=== PATIENT | female | born 1970 | race Caucasian/White ===

== ENCOUNTER 2016-05-12 09:40 | Outpatient (CLI) | payer BC ==
[2016-05-12 10:04] LABS: #Basophils 0.2 thou/uL (0.0-0.2); #Eosinphils 0.4 thou/uL (0.0-0.7); #Monocytes 0.6 thou/uL (0.11-0.59); #Neutrophils 4.5 thou/uL (1.40-6.50); %Eosinophils 4.8 % (0.0-10.0); %Monocytes 8.3 % (0.0-10.0); Hematocrit 40.2 % (36.0-47.0); Mean Platelet Volume 7.9 fL (7.4-10.4); Red Blood Cell (RBC) Count 4.57 mill/uL (4.20-5.40); White Blood Cell (WBC) Count 7.7 thou/uL (4.8-10.8)
[2016-05-12 10:12] LABS: ALT (SGPT) 9 U/L (0-55); AST (SGOT) 15 U/L (5-34); Alkaline Phosphatase 58 U/L (40-150); Anion Gap 11 mmol/L (10-20); BUN (Urea Nitrogen) 14 mg/dL (7.0-18.7); Bilirubin, Total 0.3 mg/dL (0.2-1.2); Calc. Creatinine Clearance 0 mL/min (70-130); Calcium 8.9 mg/dL (7.8-10.44); Carbon Dioxide 26 mmol/L (22-29); Chloride 108 mmol/L (98-107); Estimated GFR-MDRD 87; Protein, Total 7.1 g/dL (6.0-8.3)
== END 2016-05-12 09:41 | disposition home or self-care (01) ==
LOC: BURLAB 09:40
PROVIDERS: ATTEND Family Medicine
DX: E16.2 Hypoglycemia, unspecified (principal)
CPT/HCPCS: 36415; 80053; 83036; 83525; 84443; 84681; 85025

== ENCOUNTER 2016-06-09 07:13 | Outpatient (CLI) | payer BC ==
[2016-06-09 08:10] LABS: ALT (SGPT) 9 U/L (0-55); AST (SGOT) 17 U/L (5-34); Alkaline Phosphatase 63 U/L (40-150); Anion Gap 11 mmol/L (10-20); BUN (Urea Nitrogen) 16 mg/dL (7.0-18.7); Bilirubin, Total 0.3 mg/dL (0.2-1.2); Calc. Creatinine Clearance 0 mL/min (70-130); Calcium 9.2 mg/dL (7.8-10.44); Carbon Dioxide 27 mmol/L (22-29); Chloride 105 mmol/L (98-107); Estimated GFR-MDRD 88; Globulin 3.1 g/dL (2.4-3.5); Protein, Total 7.4 g/dL (6.0-8.3)
[2016-06-09 16:49] LABS: Iron 62 ug/dL (50-170)
== END 2016-06-09 07:14 | disposition home or self-care (01) ==
LOC: BURLAB 07:13
PROVIDERS: ATTEND Internal Medicine Endocrinology, Diabetes & Metabolism
DX: E16.2 Hypoglycemia, unspecified (principal); E55.9 Vitamin D deficiency, unspecified
CPT/HCPCS: 36415; 80053; 82024; 82306; 82533; 82728; 83003; 83540